=== PATIENT | male | born 1990 | race Hispanic/Latino ===

== ENCOUNTER 2017-05-20 12:28 | Day surgery (SDC) | payer OTHER ==
[~2017-05-20] VITALS: Ht 172.7 cm; Wt 104.3 kg
[~2017-05-20 12:28] MED LIST: OMEPRAZOLE10 MG PO
[2017-05-20 14:53] VITALS: BP 101/68
== END 2017-05-20 15:03 | disposition home or self-care (01) | DRG 392 ==
LOC: ENDO 12:28 → ORM 16:45 → ENDO 16:45 → ORM 18:00
PROVIDERS: ATTEND Internal Medicine Gastroenterology
PROC: 0DB58ZX Excision of Esophagus, Via Natural or Artificial Opening Endoscopic, Diagnostic (ICD-10-PCS; principal; 2017-05-20)
PROC: 0DB78ZX Excision of Stomach, Pylorus, Via Natural or Artificial Opening Endoscopic, Diagnostic (ICD-10-PCS; 2017-05-20)
DX: K21.9 Gastro-esophageal reflux disease without esophagitis (principal); R13.10 Dysphagia, unspecified; K22.8 Other specified diseases of esophagus; R14.0 Abdominal distension (gaseous); R10.13 Epigastric pain; K29.50 Unspecified chronic gastritis without bleeding; B96.81 Helicobacter pylori [H. pylori] as the cause of diseases classified elsewhere; K44.9 Diaphragmatic hernia without obstruction or gangrene